=== PATIENT | female | born 2005 | race African-American/Black ===

== ENCOUNTER → 2024-09-27 15:13 | Outpatient (CLI) | payer OTHER, SELFPAY | PROVIDERS: Visit Provider Obstetrics & Gynecology | DX: Z11.3 Encounter for screening for infections with a predominantly sexual mode of transmission (principal) | CPT/HCPCS: 87491; 87563; 87591 ==

== ENCOUNTER 2024-10-06 18:02 | Emergency (ER) | payer OTHER, SELFPAY ==
[2024-10-06 18:27] VITALS: BP 115/72; PULSE 71; RESP 16; TEMP 37.3; O2SAT 99; BMI 26.2
[2024-10-06 19:15] LABS: Alanine Aminotransferase 19 IU/L (<35); Albumin 5.0 g/dL (3.5-5.0); Albumin Globulin Ratio 0.9 (1.0-2.8); Alkaline Phosphatase 61 U/L (38-126); Blood Urea Nitrogen 11 mg/dL (7-17); Calcium 9.2 mg/dL (8.4-10.2); Carbon Dioxide 23 mmol/L (22-32); Chloride 104 mmol/L (98-107); Estimated Glomerular Filt Rate > 60 mL/min (>60); Globulin 5.4 g/dL (1.7-4.1); Glucose 88 mg/dL (70-99); HEMOLYSIS 83 (0-50); Lipase 79 U/L (23-300); Potassium 4.1 mmol/L (3.4-5.1); Sodium 139 mmol/L (137-145); Total Protein 10.4 g/dL (6.3-8.2)
[2024-10-06 19:29] LABS: Add Manual Diff / Slide Review NO; Hematocrit 41.1 % (36-46); Hemoglobin 13.5 g/dL (12.0-16.0); Lymphocytes Absolute Auto 1600 /uL (1100-4500); Mean Corpuscular HGB Conc 32.8 % (30-36); Mean Corpuscular Hemoglobin 30.7 PG (26-34); Mean Corpuscular Volume 93.5 fL (80-100); Platelet Count 374 X10^3/uL (150-400)
--- NOTE | 2024-10-06 20:03 | ED.ABDPAIN ---
HPI - Abdominal Pain General Chief Complaint: Abdominal Pain Stated Complaint: Abdominal Pain, Vomiting, Nausea Time Seen by Provider: 10/06/24 20:00 Source: patient Mode of arrival: Ambulatory History of Present Illness HPI narrative: 19-year-old female history of IBS currently being treated with doxycycline for chlamydia presents today with intermittent abdominal pain for 2 weeks but today started to feel nauseous and to 3 episodes of cough spit up but no blood or bile but when she went to CAT scan today earlier she started having nausea again and actually vomited once nonbilious nonbloody but no diarrhea. She had a bowel movement earlier this morning and she last ate [employer]. Other than what is stated 14 point review of system is negative. Related Data Previous Rx's ?Medication ?Instructions ?Recorded misoprostol 200 mcg tablet 200 mcg vaginal ONCE #1 tab 09/27/24 Allergies Allergy/AdvReac Type Severity Reaction Status Date / Time No Known Drug Allergies Allergy Verified 09/27/24 14:24 Review of Systems Review of Systems ROS Unobtainable: All systems reviewed & are unremarkable except as noted in HPI and below Patient History Medical History (Updated 10/07/24 @ 00:53 by Jamie Couch, DO) IUD strings lost Social History Smoking Status: Never smoker Smoking Status: Never smoker Exam Narrative Exam Narrative: GENERAL: [19] year old patient appears stated age. Well-developed patient, in mild distress. HEAD: Atraumatic. Normocephalic. EYES: Pupils equal round and reactive. Extraocular motions intact. No scleral icterus. No injection or drainage. ENT: Nose without bleeding, purulent drainage. Throat without erythema, tonsillar hypertrophy or exudate. Airway patent. NECK: Trachea midline. Non tender CARDIOVASCULAR: Regular rate and rhythm without murmurs, gallops, or rubs. RESPIRATORY: Clear to auscultation. Breath sounds equal bilaterally. No wheezes, rales, or rhonchi. GASTROINTESTINAL: Abdomen soft, periumbilical region tender to palpate but no rebound rigidity or guarding, and negative Rovsing's, neg busby, nondistended. EXTREMITIES: No edema or joint tenderness. BACK: Nontender without deformity or crepitance. No flank tenderness. NEURO: AOx3. SKIN: No rash or erythema of visible areas Initial Vital Signs Initial Vital Signs: Vital Signs Temperature 99.1 F 10/06/24 18:27 Pulse Rate 71 10/06/24 18:27 Respiratory Rate 16 10/06/24 18:27 Blood Pressure 115/72 10/06/24 18:27 Pulse Oximetry 99 10/06/24 18:27 Oxygen Delivery Method Room Air 10/06/24 18:27 Course Orders Ordered: ED Orders 10/06/24 18:55 Complete Blood Count AUTO DIFF Stat Comprehensive Metabolic Panel Stat Lipase Stat 10/06/24 19:09 Urine Culture Stat Urine Microscopic Stat 10/06/24 20:02 CT abdomen pelvis w con Stat 10/06/24 23:54 CT pelvis wo con Stat Ondansetron HCl (Ondansetron 4 Mg/2 Ml Inj) 4 mg IV NOW PRN PRN Reason: Nausea And Vomiting Last Admin: 10/06/24 21:20 Dose: 4 mg Documented By: SHARRI Ondansetron HCl (Ondansetron 4 Mg Odt) 4 mg PO NOW PRN PRN Reason: Nausea And Vomiting Discontinued Medications Doxycycline Hyclate (Doxycycline Hyclate 100 Mg Tablet) 100 mg PO NOW ONE Stop: 10/06/24 22:41 Last Admin: 10/06/24 22:57 Dose: 100 mg Documented By: SHARRI Vital Signs Vital signs: Vital Signs - 8 hr 10/06/24 18:27 Temperature 99.1 F Pulse Rate 71 Respiratory Rate 16 Blood Pressure 115/72 Pulse Oximetry 99 Oxygen Delivery Method Room Air MDM - Abdominal Pain Lab Data 10/06/24 18:55 10/06/24 18:55 Labs: Lab Results 10/06/24 10/06/24 Range/Units 18:55 19:09 WBC 4.4 L (4.5-11.0) X10^3/uL RBC 4.39 (4.0-5.2) X10^6/uL Hgb 13.5 (12.0-16.0) g/dL Hct 41.1 (36-46) % MCV 93.5 (80-100) fL MCH 30.7 (26-34) PG MCHC 32.8 (30-36) % RDW 12.1 (11.6-14.8) % Plt Count 374 (150-400) X10^3/uL Neut % (Auto) 54.0 (50-75) % Lymph % (Auto) 36.1 (25-40) % [place] % (Auto) 8.2 (3-14) % Eos % (Auto) 1.1 L (2-4) % Baso % (Auto) 0.6 (0-2) % Neut # (Auto) 2400 (9783-3642) /uL Lymph # (Auto) 1600 (7405-8244) /uL [place] # (Auto) 400 (0-900) /uL Eos # (Auto) 100 (0-450) /uL Baso # (Auto) 0 (0-100) /uL Sodium 139 (137-145) mmol/L Potassium 4.1 (3.4-5.1) mmol/L Chloride 104 (98-107) mmol/L Carbon Dioxide 23 (22-32) mmol/L BUN 11 (7-17) mg/dL Creatinine 0.77 (0.52-1.04) mg/dL Estimated GFR > 60 (>60) mL/min BUN/Creatinine Ratio 14.3 (6-22) Glucose 88 (70-99) mg/dL Calcium 9.2 (8.4-10.2) mg/dL Total Bilirubin 0.9 (0.2-1.3) mg/dL AST 38 H (14-36) IU/L ALT 19 (<35) IU/L Alkaline Phosphatase 61 (38-126) U/L Total Protein 10.4 H (6.3-8.2) g/dL Albumin 5.0 (3.5-5.0) g/dL Globulin 5.4 H (1.7-4.1) g/dL Albumin/Globulin Ratio 0.9 L (1.0-2.8) Lipase 79 (23-300) U/L Urine RBC 0-1/hpf (0-5/HPF) Urine WBC 0-1/hpf (0-5/HPF) Ur Squamous Epith Cells 5-10 /hpf H (0-5/HPF) Urine Bacteria Few (2-10) H (None) Urine Mucus 3+ H (Negative) Vol Urine Centrifuged 10ml (spun) Point of care testing: Point of Care Testing Test Results Negative Urine Dip Bedside Urine Glucose Negative Bedside Urine Bilirubin - Negative Bedside Urine Ketone - Negative Urine Specific [place] 1.025 Bedside Urine Occult Blood +/- Bedside Urine pH 6.0 Bedside Urine Protein +/- 15 Bedside Urine Urobilinogen - Negative Bedside Urine Nitrite - Negative Bedside Urine Leukocytes - Negative Esterase Imaging Data CT scan - abdomen/pelvis: Radiologist's Impression: [address] [id number] [address] Scan Report Signed Patient: Rose Landers MR#: [id number] : 2005 Acct:[id number] Age/Sex: 19 / F Date of Service: 10/06/24 Loc: ED Accession Number: [id number] Procedure: CT abdomen pelvis w con Ordering Provider: Jamie Couch D.O. PROCEDURE: CT ABDOMEN PELVIS W CON INDICATIONS: abd pain n/v, stabbing pain for a coule of weeks TECHNIQUE: After the administration of intravenous contrast, axial sections acquired from the lung bases to the pubic symphysis. Coronal and sagittal reformats were performed. For radiation dose reduction, the following was used: automated exposure control, adjustment of mA and/or kV according to patient size. COMPARISON: None. FINDINGS: Image quality: Diagnostic. Lower Chest: No significant findings. ABDOMEN: Liver: No solid mass. Gallbladder: No radiopaque gallstones or wall thickening. Biliary ducts: No biliary dilation. Pancreas: No ductal dilation. Spleen: Size is within normal limits. Adrenal Glands: No adrenal nodules. Kidneys and Ureters: No hydronephrosis. No solid mass. No complex renal cystic lesion which requires follow up. Stomach and Bowel: Normal colonic caliber, without significant wall thickening. [id number] colonic stool. No obstruction. Peritoneum: No abnormal intraperitoneal fluid. No free air. Ventral Wall: No significant ventral hernia. Abdominal Nodes: No retroperitoneal or mesenteric adenopathy by size criteria. Vessels: Aorta and inferior vena cava are normal in size. PELVIS: Pelvic Organs: IUD. Bladder: There is marked hyperdensity within the lower pelvis with significant artifact within the region of the bladder. This does not appear present on entry driver operator images. Pelvic Nodes: No enlarged lymph nodes. Miscellaneous: No inguinal hernias are seen. Bones: No aggressive osseous abnormality. IMPRESSION: Hyperdensity with artifact in the region of the bladder. This may represent compressed bladder. However, configuration is atypical as is the artifact. No priors. Recommend correlation to patient's symptoms. If symptoms persists, 4 hour repeat pelvis may be obtained for additional evaluation, allowing time for contrast artifact to dissipate assuming it is within the bladder or potentially extra luminal. Extremity x-ray #1: Radiologist's Impression: [address] [id number] [address] Scan Report Signed Patient: Rose Landers MR#: [id number] : 2005 Acct:[id number] Age/Sex: 19 / F Date of Service: 10/06/24 Loc: ED Accession Number: [id number] Procedure: CT pelvis wo con Ordering Provider: Jamie Couch D.O. PROCEDURE: CT PEL WO CON INDICATIONS: F/u for abnormal density in Bladder area TECHNIQUE: Noncontrast 3 mm axial sections acquired through the bony pelvis, with coronal and sagittal reformatting. COMPARISON: [facility], CT, CT ABDOMEN PELVIS W CON, 10/06/2024, 20:09. FINDINGS: Image quality: Excellent. Bones: No visualized fracture. Soft tissues: Previous area of hyperdensity within the pelvis remains present. It is anterior and dependent. It is slightly more prominent. IMPRESSION: Persistent hyperdensity within the pelvis as above. This is suspected to be related to contrast within the bladder which remains incompletely distended. Upon discussion with Dr. Jamie Couch on 10/07/2024 at 12:22 a.m., there is no history of trauma or pain within this region. MDM Narrative Medical decision making narrative: All lab work, vital signs, nurse triage note, medication list, previous ER visits, and all imaging studies reviewed. Hyperdensity with artifact in the region of the bladder. This may represent compressed bladder. However configuration is atypical as this artifact. No prior. Repeat [address] allowing for contrast artifact to dissipate as certainly it is within the bladder or potentially extra luminal. CT pelvis repeated 4 hours later persistent hyperdensity within the pelvis as above. Suspected to be related to contrast within the bladder which remains incompletely distended. No history of trauma or pain in this region. Differential diagnosis includes PID, UTI, kidney stone, constipation, pancreatitis, appendicitis. Discharge Plan Departure Patient Disposition: Home Clinical Impression: Abdominal pain Instructions: DI for Abdominal Pain-Adult Activity Restrictions/Additional Instructions: Return with new or worsening symptoms. Continue taking antibiotic as previously prescribed for for chlamydia. Clear liquid diet advance as tolerated. Keep hydrated. Follow up with OBGYN for your October 26 appointment for IUD removal. Prescriptions: No Action misoprostol 200 mcg tablet 200 mcg vaginal ONCE Qty: 1 0RF Rx Instructions: place medication high inside vagina (close to cervix) at bedtime the night before your procedure Referrals: Miscellaneous,Doctor, MD [Primary Care Provider, Medical] Stand Alone Forms: Patient Portal/API
[2024-10-06] MEDS: ONDANSETRON 4 MG/2 ML INJ IV (21:20)
[2024-10-06 22:20] VITALS: PULSE 68; O2SAT 100
[2024-10-06 22:30] VITALS: BP 111/62; PULSE 70; O2SAT 100
[2024-10-06] MEDS: DOXYCYCLINE HYCLATE 100 MG TABLET PO (22:57)
[2024-10-06 23:00] VITALS: PULSE 68; O2SAT 99
[2024-10-06 23:01] VITALS: BP 117/82; PULSE 58; O2SAT 99
[2024-10-06 23:30] VITALS: BP 116/70; PULSE 62; O2SAT 99
--- NOTE | 2024-10-06 23:54 | DI.CT.S_ITS ---
PROCEDURE: CT PEL WO CON INDICATIONS: F/u for abnormal density in Bladder area TECHNIQUE: Noncontrast 3 mm axial sections acquired through the bony pelvis, with coronal and sagittal reformatting. COMPARISON: [facility], CT, CT ABDOMEN PELVIS W CON, 10/06/2024, 20:09. FINDINGS: Image quality: Excellent. Bones: No visualized fracture. Soft tissues: Previous area of hyperdensity within the pelvis remains present. It is anterior and dependent. It is slightly more prominent. IMPRESSION: Persistent hyperdensity within the pelvis as above. This is suspected to be related to contrast within the bladder which remains incompletely distended. Upon discussion with Dr. Jamie Couch on 10/07/2024 at 12:22 a.m., there is no history of trauma or pain within this region. Dictated by: Lacey Hwang M.D. on 10/07/2024 at 0:16 Approved by: Lacey Hwang M.D. on 10/07/2024 at 0:23
[2024-10-07] VITALS: BP 115/62; PULSE 67; O2SAT 99
[2024-10-07 00:10] VITALS: BP 114/65; PULSE 76; O2SAT 98
[2024-10-07 00:30] VITALS: PULSE 58; O2SAT 98
== END 2024-10-07 01:03 | disposition home or self-care (01) ==
PROVIDERS: Emergency Medicine; Emergency Provider Family Medicine
DX: R10.9 Unspecified abdominal pain (principal); R11.2 Nausea with vomiting, unspecified; Z97.5 Presence of (intrauterine) contraceptive device
CPT/HCPCS: 36415; 72192; 74177; 80053; 81003; 81015; 81025; 83690; 85025; 87077; 87086; 87147; 96374; 99284; J2405; Q9967